=== PATIENT | female | born 1975 | race Caucasian/White ===

== ENCOUNTER 2019-09-25 17:51 | Outpatient (CLI) | payer BC | END 2019-09-25 23:59 | disposition EMS.NT | LOC: EMS 17:51 | PROVIDERS: ATTEND Surgery | DX: S79.911A Unspecified injury of right hip, initial encounter (principal); W22.8XXA Striking against or struck by other objects, initial encounter; Y92.017 Garden or yard in single-family (private) house as the place of occurrence of the external cause; Z53.29 Procedure and treatment not carried out because of patient's decision for other reasons ==